=== PATIENT | male | born 1945 | race African-American/Black ===

== ENCOUNTER 2019-11-26 05:16 | Day surgery (SDC) | payer OTHER ==
[~2019-11-26] VITALS: Ht 177.8 cm; Wt 87.5 kg
[2019-11-26 06:07] LABS: APTT 28.8 SECONDS (22.8-39.4); INR 1.01 (0.85-1.17); PROTIME 13.3 SECONDS (11.6-15.0)
[2019-11-26 06:13] LABS: ALBUMIN 3.4 g/dL (3.4-5.0); ANION GAP 11.8 mmol/L (8-16); BILIRUBIN - TOTAL 0.63 mg/dL (0.2-1.3); CALCIUM 9.2 mg/dL (8.5-10.1); CARBON DIOXIDE 27.8 mmol/L (21.0-32.0); CREATININE - SERUM 1.5 mg/dL (0.6-1.3); HEMATOCRIT 46.1 % (42.0-54.0); MCH 28.5 pg (26.0-34.0); MCHC 32.5 g/dL (31.0-37.0); MCV 87.6 fL (80.0-100.0); MEAN PLATELET VOLUME 9.5 fL (7.4-10.4); POTASSIUM - SERUM 3.6 mmol/L (3.5-5.1); PROTEIN - SERUM 7.5 g/dL (6.4-8.2); RBC 5.26 10x6/uL (4.20-6.10); RDW 13.7 % (11.5-14.5); WBC 5.7 10x3/uL (4.8-10.8)
[2019-11-26] MEDS ORDERED: CHLORTHALIDONE25 MG PO (06:50)
[2019-11-26] MEDS ORDERED: LISINOPRIL40 MG PO (06:50)
[2019-11-26] MEDS ORDERED: BAYER CHEWABLE81 MG PO (06:50)
[2019-11-26 06:51] VITALS: BP 121/80; Ht 177.8 cm; Wt 87.5 kg
--- NOTE | 2019-11-26 10:35 | NUR ---
1030 RECIEVED A FULL LIQ TRAY AND INSTRUCTIONS GIVEN TO OFFICER
--- NOTE | 2019-11-26 10:53 | NUR ---
1050 IV REMOVED AND VS STABLE. ALL PAPERS GIVEN TO LAW ENFORCEMENT. PT DEMIES PAIN AND NAUSEA. ATE WELL. SMALL AMT OF DRAINGE LIGHT IN COLOR
--- NOTE | 2019-11-27 17:21 | OP ---
PATIENT NAME: MOHAMUD WILSON JR MEDICAL RECORD: [id number] :47 LOCATION:D.OPS ADMISSION DATE: SURGEON: JULIO VELEZ MD DATE OF OPERATION: 11/26/2019 PREOPERATIVE DIAGNOSIS: Recurrent sebaceous cyst of the scalp. POSTOPERATIVE DIAGNOSIS: Recurrent lipoma of the scalp. PROCEDURE: Excision of recurrent lipoma of the scalp. SURGEON: Julio Velez MD [employer] OPER[employer] MANAGER: None. BLOOD LOSS: 50 cc. ANESTHESIA: General. COMPLICATIONS: None. The risks, possible complications and alternatives to the procedure were explained to the patient. He elects to proceed. Discussion specifically included, but was not limited to, bleeding requiring emergency reoperation, infection, nerve injury. I was particular concerned about nerve injury as the patient states he is already having a nerve type pain, so excision of this subcutaneous mass may actually exacerbate the nerve pain or contribute to numbness or paresthesias. OPERATIVE COURSE: The patient was conveyed the operating room electively on 11/26/2019. General anesthesia was induced by the anesthesia staff. The patient was positioned prone. The neck, the posterior scalp, and the upper back were sterilely prepped and draped. Through the use of double curvilinear incisions, I excised the skin and subcutaneous tissue around the transverse scar as this was a recurrent lesion. I dissected down to some very indurated tissue consistent with scar tissue and this was excised in a piecemeal fashion. I did not identify a sebaceous cyst. I did not identify any keratin debris. Some more of the scar was excised through the cephalad and caudad flaps. I incised deeper and I did identify a well circumscribed lipoma. The entire mass was 5 cm in transverse dimension, and then a 4.5 cm in cephalad caudad dimension. The lipoma was excised in its entirety. Additional connective tissue as well as scar tissue was excised with electrocautery. At no time was there any apparent nerve injury during this operation. Hemostasis was achieved with electrocautery. Clarissa was added to the wound base for additional hemostasis. The subdermis was approximated with interrupted 2-0 Vicryls. The skin was approximated with multiple interrupted horizontal mattress 2-0 nylons. A sterile dressing was applied. The patient had a mid upper back sebaceous cyst/blackhead. This appears to be a sebaceous cyst that has ruptured. It was very inflamed. I felt that it was in the patient's best interest to evacuate this. We did this with curettes without having to make any incision. A sterile dressing was applied. OPERATIVE REPORT [id number] MOHAMUD WILSON JR The patient was then extubated and conveyed to post-anesthesia care unit where he was in stable condition. He had normal neck function in the recovery room. He has sensation in the cephalad caudad and laterally on both sides from the incision, so I do not think there has been any nerve problem. He has good cranial nerve XI function as well. There is no need for the patient to follow up with me in the office unless he develops complication related to this operative procedure. I would like the nylon sutures to come out in 2-3 weeks. If the patient needs to see me, he can see me out at the intermediate unit on my GI day. I could take the sutures out or the staff to take them out just as easily. I did write a prescription for [place] 5.0 mg, #10. He can shower. He is not to submerge his head. He can shower right over the incision and can use soap and water or shampoo. TRANSINT:[id number] Voice Confirmation ID: [id number] DOCUMENT ID: [id number] JULIO VELEZ MD at 172 CC: [id number] DICTATION DATE: 11/26/19945 EFFICIENCY MINER: 11/26/19 1026 [facility] 11/26/19 [facility] [address] [place] [address]
== END 2019-11-26 11:05 ==
LOC: D.OPS 05:16
PROVIDERS: Anesthesiology; ATTEND Surgery
DX: D17.0 Benign lipomatous neoplasm of skin and subcutaneous tissue of head, face and neck (principal); I10 Essential (primary) hypertension